=== PATIENT | male | born 1955 | race Two or more races ===

== ENCOUNTER 2018-05-16 09:28 | Emergency (ER) | payer OTHER ==
[~2018-05-16] VITALS: Ht 177.8 cm; Wt 99.8 kg
[~2018-05-16 09:28] MED LIST: ASA81 MG; CLONOPIN; PLAVIX75 MG; SIMVASTATIN5 MG; TOPROL XL25 MG
[2018-05-16] MEDS ORDERED: ROSUVASTATIN CA20 MG (09:41)
[2018-05-16] MEDS ORDERED: AVAPRO75 MG (09:41)
== END 2018-05-16 10:13 | disposition home or self-care (01) ==
LOC: ER 09:28
DX: B37.0 Candidal stomatitis (principal)